=== PATIENT | female | born 1995 | race Caucasian/White ===

== ENCOUNTER 2017-01-09 18:35 | Emergency (ER) | payer BC, OTHER ==
[~2017-01-09] VITALS: Ht 171.4 cm; Wt 85.8 kg
[2017-01-09] MEDS ORDERED: DEPO150I IM (18:56)
[2017-01-09] MEDS ORDERED: MUPI2OI EXT (20:36)
[2017-01-09 20:48] VITALS: BP 123/56
== END 2017-01-09 20:48 | disposition home or self-care (01) ==
LOC: M ED 18:35
DX: L03.115 Cellulitis of right lower limb (principal); Z87.2 Personal history of diseases of the skin and subcutaneous tissue; Z79.3 Long term (current) use of hormonal contraceptives; Z88.1 Allergy status to other antibiotic agents; Z88.8 Allergy status to other drugs, medicaments and biological substances

== ENCOUNTER 2017-04-23 16:23 | Emergency (ER) | payer OTHER ==
[~2017-04-23] VITALS: Ht 172.7 cm; Wt 81.8 kg
[2017-04-23 16:23] VITALS: BP 148/76
[~2017-04-23 16:23] MED LIST: DEPO150I IM; MUPI2OI EXT
[2017-04-23] MEDS ORDERED: IBUP-1022 PO (17:28)
--- NOTE | 2017-04-24 21:13 | REP ---
RIGHT ANKLE, FOUR VIEWS: There is no evidence of an acute fracture, dislocation or intrinsic bone disease. The ankle mortise is anatomic. IMPRESSION: No fracture or dislocation. Signed by Esau Carolina MD 04/25/2017 08:32 P
== END 2017-04-23 18:10 | disposition home or self-care (01) ==
LOC: M ED 16:23
DX: S93.491A Sprain of other ligament of right ankle, initial encounter (principal); X50.1XXA Overexertion from prolonged static or awkward postures, initial encounter; Y92.099 Unspecified place in other non-institutional residence as the place of occurrence of the external cause; Y93.9 Activity, unspecified; Y99.9 Unspecified external cause status; Z79.3 Long term (current) use of hormonal contraceptives; Z88.1 Allergy status to other antibiotic agents; Z91.02 Food additives allergy status

== ENCOUNTER 2018-01-17 08:30 | Emergency (ER) | payer OTHER ==
[2018-01-17] MEDS: NS 1,000 ML IV ×2 (09:05)
[2018-01-17] MEDS: ONDANSETRON 4MG/2ML VIAL (J2405) IV ×2 (09:05)
[2018-01-17 09:07] LABS: BASO % 0.5 % (0.0-1.0); EOS # 0.1 10^3/uL (0.0-0.50); EOS % 0.8 % (0.0-3.0); HEMATOCRIT 36.3 % (36.0-47.0); HEMOGLOBIN 12.3 g/dl (12.0-15.5); IMMATURE GRANULOCYTE % 0.2 % (0-3.0); LYMPH # 1.8 10^3/uL (1.5-6.5); LYMPH % 20.8 % (24.0-44.0); MEAN CORPUSCULAR HEMOGLOBIN 29.6 pg (27.0-33.0); MEAN CORPUSCULAR HGB CONC 33.9 g/dl (32.0-36.5); MEAN CORPUSCULAR VOLUME 87.5 fl (80.0-96.0); MONO # 0.6 10^3/uL (0.0-0.8); MONO % 6.5 % (0.0-5.0); NEUTROPHILS % 71.2 % (36.0-66.0); PLATELET COUNT, AUTOMATED 289 10^3/uL (150-450); RED BLOOD COUNT 4.15 10^6/uL (4.00-5.40); RED CELL DISTRIBUTION WIDTH 12.8 % (11.5-14.5); WHITE BLOOD COUNT 8.4 10^3/uL (4.0-10.0)
[2018-01-17 09:19] LABS: CONTROL LINE HCG INT CTR LINE PRESENT; HCG, SERUM QUALITATIVE NEGATIVE (NEGATIVE)
[2018-01-17 09:33] LABS: ALBUMIN 4.2 GM/DL (3.2-5.2); ALKALINE PHOSPHATASE 105 U/L (45-117); ALT/SGPT 27 U/L (12-78); ANION GAP 13 MEQ/L (8-16); AST/SGOT 15 U/L (7-37); BILIRUBIN,DIRECT 0.2 MG/DL (0.0-0.2); BILIRUBIN,TOTAL 0.6 MG/DL (0.2-1.0); BLOOD UREA NITROGEN 14 MG/DL (7-18); CALCIUM LEVEL 9.3 MG/DL (8.5-10.1); CARBON DIOXIDE LEVEL 19 MEQ/L (21-32); CHLORIDE LEVEL 109 MEQ/L (98-107); CREATININE FOR GFR 0.92 MG/DL (0.55-1.30); GLUCOSE, FASTING 105 MG/DL (70-100); LIPASE 102 U/L (73-393); POTASSIUM SERUM 3.4 MEQ/L (3.5-5.1); SODIUM LEVEL 141 MEQ/L (136-145); TOTAL PROTEIN 7.7 GM/DL (6.4-8.2)
[2018-01-17 11:29] LABS: CHLAMYDIA DNA AMPLIFICATION NEGATIVE (NEGATIVE); GC DNA AMPLIFICATION NEGATIVE (NEGATIVE)
== END 2018-01-17 11:28 | disposition home or self-care (01) ==
LOC: M ED 08:30
DX: E86.0 Dehydration (principal); R11.10 Vomiting, unspecified; R10.9 Unspecified abdominal pain; R00.0 Tachycardia, unspecified; Z91.011 Allergy to milk products; N92.6 Irregular menstruation, unspecified; Z88.1 Allergy status to other antibiotic agents; Z88.8 Allergy status to other drugs, medicaments and biological substances; Z79.899 Other long term (current) drug therapy
CPT/HCPCS: J2405

== ENCOUNTER 2018-01-21 07:08 | Emergency (ER) | payer OTHER ==
[2018-01-21] MEDS ORDERED: GASTROGRAFIN SOLUTION 30ML (Q9963) As Ordered ×2 (08:22)
[2018-01-21 08:27] LABS: BASO # 0.1 10^3/uL (0.0-0.2); BASO % 0.7 % (0.0-1.0); EOS # 0.1 10^3/uL (0.0-0.50); EOS % 1.7 % (0.0-3.0); HEMATOCRIT 35.5 % (36.0-47.0); HEMOGLOBIN 12.1 g/dl (12.0-15.5); IMMATURE GRANULOCYTE % 0.3 % (0-3.0); LYMPH # 2.4 10^3/uL (1.5-6.5); LYMPH % 32.9 % (24.0-44.0); MEAN CORPUSCULAR HEMOGLOBIN 29.8 pg (27.0-33.0); MEAN CORPUSCULAR HGB CONC 34.1 g/dl (32.0-36.5); MEAN CORPUSCULAR VOLUME 87.4 fl (80.0-96.0); MONO # 0.7 10^3/uL (0.0-0.8); MONO % 9.2 % (0.0-5.0); NEUTROPHILS % 55.2 % (36.0-66.0); PLATELET COUNT, AUTOMATED 275 10^3/uL (150-450); RED BLOOD COUNT 4.06 10^6/uL (4.00-5.40); RED CELL DISTRIBUTION WIDTH 12.6 % (11.5-14.5); WHITE BLOOD COUNT 7.2 10^3/uL (4.0-10.0)
[2018-01-21 08:31] LABS: CONTROL LINE UCG INT CTR LINE PRESENT; URINE PREG TEST NEGATIVE (NEGATIVE)
[2018-01-21 08:32] LABS: KETONE, URINE AUTO RFX TRACE mg/dL (NEGATIVE); LEUKOCYTE ESTERASE UR AUTO RFX NEGATIVE (NEGATIVE); MUCUS, URINE RFX SMALL (NEGATIVE); NITRITE, URINE AUTO RFX NEGATIVE (NEGATIVE); RBC, URINE AUTO RFX 56 /HPF (0-3); SPECIFIC GRAVITY UR AUTO RFX 1.023 (1.002-1.035); SQUAM EPITHELIAL CELL UR AURFX 7 /HPF (0-6); WBC, URINE AUTO RFX 5 /HPF (0-3)
[2018-01-21] MEDS: NS 1,000 ML IV ×2 (08:33)
[2018-01-21] MEDS: METOCLOPRAMIDE INJ 10MG/2ML VIAL (J2765) IV ×2 (08:33)
[2018-01-21 08:41] LABS: ALBUMIN 3.9 GM/DL (3.2-5.2); ALBUMIN/GLOBULIN RATIO 1.03 (1.00-1.93); ALKALINE PHOSPHATASE 94 U/L (45-117); ALT/SGPT 26 U/L (12-78); AMYLASE 31 U/L (25-115); ANION GAP 11 MEQ/L (8-16); AST/SGOT 15 U/L (7-37); BILIRUBIN,TOTAL 0.5 MG/DL (0.2-1.0); BLOOD UREA NITROGEN 15 MG/DL (7-18); C REACTIVE PROTEIN QUANTITATIV 0.52 MG/DL (0.00-0.30); CALCIUM LEVEL 8.8 MG/DL (8.5-10.1); CARBON DIOXIDE LEVEL 21 MEQ/L (21-32); CHLORIDE LEVEL 108 MEQ/L (98-107); CREATININE FOR GFR 0.86 MG/DL (0.55-1.30); GLUCOSE, FASTING 84 MG/DL (70-100); LIPASE 85 U/L (73-393); POTASSIUM SERUM 3.6 MEQ/L (3.5-5.1); SODIUM LEVEL 140 MEQ/L (136-145); TOTAL PROTEIN 7.7 GM/DL (6.4-8.2)
[2018-01-21] MEDS: GASTROGRAFIN SOLUTION 30ML (Q9963) PO ×4 (08:42→09:09)
[2018-01-21] MEDS: KETOROLAC 30 MG/ML VIAL (J1885) IV ×2 (08:42)
[2018-01-21] MEDS ORDERED: ISOVUE-370 76% 100ML VIAL (Q9967) As Ordered ×2 (09:12)
== END 2018-01-21 10:59 | disposition home or self-care (01) ==
LOC: M ED 07:08
DX: K52.9 Noninfective gastroenteritis and colitis, unspecified (principal)
CPT/HCPCS: Q9967

== ENCOUNTER 2018-03-09 21:26 | Emergency (ER) | payer OTHER ==
[2018-03-09] MEDS: PANTOPRAZOLE 40MG INJ (PROTONIX) (C9113) IV (22:30)
[2018-03-09] MEDS: NS 1,000 ML IV (22:30)
[2018-03-09 22:56] LABS: BASO # 0.1 10^3/uL (0.0-0.2); BASO % 0.6 % (0.0-1.0); EOS # 0.1 10^3/uL (0.0-0.50); HEMATOCRIT 34.9 % (36.0-47.0); HEMOGLOBIN 11.3 g/dl (12.0-15.5); IMMATURE GRANULOCYTE % 0.4 % (0-3.0); LYMPH # 2.5 10^3/uL (1.5-6.5); LYMPH % 23.6 % (24.0-44.0); MEAN CORPUSCULAR HEMOGLOBIN 29.4 pg (27.0-33.0); MEAN CORPUSCULAR HGB CONC 32.4 g/dl (32.0-36.5); MEAN CORPUSCULAR VOLUME 90.9 fl (80.0-96.0); MONO # 0.8 10^3/uL (0.0-0.8); MONO % 7.1 % (0.0-5.0); NEUTROPHILS # 7.3 10^3/uL (1.8-7.7); NEUTROPHILS % 67.3 % (36.0-66.0); PLATELET COUNT, AUTOMATED 234 10^3/uL (150-450); RED BLOOD COUNT 3.84 10^6/uL (4.00-5.40); RED CELL DISTRIBUTION WIDTH 12.7 % (11.5-14.5); WHITE BLOOD COUNT 10.8 10^3/uL (4.0-10.0)
[2018-03-09 23:08] LABS: KETONE, URINE AUTO RFX NEGATIVE (NEGATIVE); LEUKOCYTE ESTERASE UR AUTO RFX 1+ (NEGATIVE); MUCUS, URINE RFX SMALL (NEGATIVE); NITRITE, URINE AUTO RFX NEGATIVE (NEGATIVE); RBC, URINE AUTO RFX 4 /HPF (0-3); SPECIFIC GRAVITY UR AUTO RFX 1.025 (1.002-1.035); SQUAM EPITHELIAL CELL UR AURFX 16 /HPF (0-6); WBC, URINE AUTO RFX 6 /HPF (0-3)
[2018-03-09 23:11] LABS: INR 1.06; PROTHROMBIN TIME 13.9 SECONDS (12.1-14.4)
[2018-03-09 23:33] LABS: ALBUMIN/GLOBULIN RATIO 1.33 (1.00-1.93); ALKALINE PHOSPHATASE 100 U/L (45-117); ALT/SGPT 24 U/L (12-78); AMYLASE 38 U/L (25-115); ANION GAP 10 MEQ/L (8-16); AST/SGOT 15 U/L (7-37); BILIRUBIN,DIRECT 0.1 MG/DL (0.0-0.2); BILIRUBIN,TOTAL 0.4 MG/DL (0.2-1.0); BLOOD UREA NITROGEN 19 MG/DL (7-18); CALCIUM LEVEL 8.9 MG/DL (8.5-10.1); CARBON DIOXIDE LEVEL 24 MEQ/L (21-32); CHLORIDE LEVEL 106 MEQ/L (98-107); CREATININE FOR GFR 0.79 MG/DL (0.55-1.30); GLOMERULAR FILTRATION RATE > 60.0 (>60); GLUCOSE, FASTING 84 MG/DL (70-100); LIPASE 68 U/L (73-393); POTASSIUM SERUM 3.6 MEQ/L (3.5-5.1); SODIUM LEVEL 140 MEQ/L (136-145)
[2018-03-09 23:43] LABS: CONTROL LINE HCG INT CTR LINE PRESENT; HCG, SERUM QUALITATIVE NEGATIVE (NEGATIVE)
== END 2018-03-10 00:44 | disposition home or self-care (01) ==
LOC: M ED 03-10 00:44
DX: R10.84 Generalized abdominal pain (principal); R11.0 Nausea; K21.9 Gastro-esophageal reflux disease without esophagitis; Z88.1 Allergy status to other antibiotic agents; Z88.8 Allergy status to other drugs, medicaments and biological substances
CPT/HCPCS: C9113

== ENCOUNTER → 2018-05-01 | Outpatient (REF) | payer OTHER ==
[~2018-05-01] MED LIST changes: +CIPR-249 PO; +DICY10CA13 PO; +FLAG500T PO; +FLUO20CA19; +IBUP-1022 PO; +PROT1TAB2 PO; +REGL10TA6 PO; +ZOFR4TAB14 PO; +ZOFR4TAB16 PO
== END ==
LOC: M SFHCPLAZ 14:53
DX: R19.4 Change in bowel habit (principal)

== ENCOUNTER → 2018-05-03 | Outpatient (CLI) | payer OTHER ==
[2018-05-05 07:47] LABS: H PYLORI QUALITATIVE IgG NEGATIVE (NEGATIVE)
== END ==
LOC: M LAB 14:49
PROVIDERS: ATTEND Internal Medicine
DX: R19.4 Change in bowel habit (principal)

== ENCOUNTER 2018-05-10 08:39 | Emergency (ER) | payer OTHER ==
[~2018-05-10] VITALS: Ht 170.2 cm; Wt 78.2 kg
[~2018-05-10 08:39] MED LIST changes: -DICY10CA13 PO; -FLUO20CA19
[2018-05-10] MEDS ORDERED: FLUO20CA19 (08:46)
[2018-05-10 09:10] LABS: BASO % 0.4 % (0.0-1.0); EOS # 0.1 10^3/uL (0.0-0.50); EOS % 0.7 % (0.0-3.0); HEMATOCRIT 35.6 % (36.0-47.0); HEMOGLOBIN 11.9 g/dl (12.0-15.5); LYMPH # 1.4 10^3/uL (1.5-6.5); LYMPH % 15.5 % (24.0-44.0); MEAN CORPUSCULAR HEMOGLOBIN 30.1 pg (27.0-33.0); MEAN CORPUSCULAR HGB CONC 33.4 g/dl (32.0-36.5); MEAN CORPUSCULAR VOLUME 90.1 fl (80.0-96.0); MONO # 0.5 10^3/uL (0.0-0.8); MONO % 5.2 % (0.0-5.0); NEUTROPHILS % 77.9 % (36.0-66.0); PLATELET COUNT, AUTOMATED 251 10^3/uL (150-450); RED BLOOD COUNT 3.95 10^6/uL (4.00-5.40)
[2018-05-10] MEDS ORDERED: ONDANSETRON 4MG/2ML VIAL (J2405) IV ONE (09:30)
[2018-05-10] MEDS ORDERED: KETOROLAC 30 MG/ML VIAL (J1885) IV ONE (09:30)
[2018-05-10] MEDS ORDERED: NS 1,000 ML IV ONE (09:30)
[2018-05-10 09:34] LABS: HCG, SERUM QUALITATIVE NEGATIVE (NEGATIVE)
[2018-05-10 09:39] LABS: ALBUMIN 4.3 GM/DL (3.2-5.2); ALT/SGPT 18 U/L (12-78); AMYLASE 35 U/L (25-115); BILIRUBIN,DIRECT 0.1 MG/DL (0.0-0.2); BILIRUBIN,TOTAL 0.5 MG/DL (0.2-1.0); BLOOD UREA NITROGEN 12 MG/DL (7-18); CALCIUM LEVEL 9.2 MG/DL (8.5-10.1); CARBON DIOXIDE LEVEL 23 MEQ/L (21-32); CHLORIDE LEVEL 106 MEQ/L (98-107); CREATININE FOR GFR 0.76 MG/DL (0.55-1.30); GLOMERULAR FILTRATION RATE > 60.0 (>60); GLUCOSE, FASTING 96 MG/DL (70-100); LIPASE 69 U/L (73-393); POTASSIUM SERUM 4.1 MEQ/L (3.5-5.1); SODIUM LEVEL 137 MEQ/L (136-145); TOTAL PROTEIN 7.5 GM/DL (6.4-8.2)
[2018-05-10] MEDS ORDERED: ISOVUE-370 76% 100ML VIAL (Q9967) As Ordered ONE (10:27)
[2018-05-10 11:05] VITALS: BP 117/64
--- NOTE | 2018-05-10 11:15 | REP ---
GALLBLADDER ULTRASOUND: HISTORY: Epigastric pain. There is no filling defects in the gallbladder. The gallbladder wall measures 1.3 mm. The common bile duct measures 3.5 mm. The liver and pancreas are normal in echogenicity. The right kidney measures 4.2 cm in transverse x 3.3 cm in AP x 10.8 cm in cephalocaudal dimensions. There is no hydronephrosis or mass. IMPRESSION: Normal gallbladder ultrasound. Electronically Signed by Rao Bruno MD 05/10/2018 11:29 A
--- NOTE | 2018-05-10 11:22 | REP ---
CT ABDOMEN AND PELVIS WITH CONTRAST: HISTORY: Epigastric pain. CONTRAST: Isovue-370, 100 mL. The liver, gallbladder, pancreas, spleen, adrenal glands, and kidneys are normal in appearance. There is no mass, adenopathy, or free fluid. The visualized lungs are clear. The urinary bladder and uterus are normal in appearance. A 1.8 cm oval structure is present in the region of the left adnexa. This most likely represents a left ovarian cyst. The bony structure is intact. IMPRESSION: There is a 1.8 cm oval structure in the region of the left adnexa most likely representing an ovarian cyst. Electronically Signed by Rao Bruno MD 05/10/2018 11:30 A
[2018-05-11] MEDS ORDERED: ZOFR4TAB14 PO (08:50)
[2018-05-11] MEDS ORDERED: DICY10CA13 PO (08:50)
[2018-05-11] MEDS ORDERED: PROT1TAB2 PO (08:53)
== END 2018-05-10 11:13 | disposition home or self-care (01) ==
LOC: M ED 08:39
DX: R10.13 Epigastric pain (principal); N83.202 Unspecified ovarian cyst, left side; R11.2 Nausea with vomiting, unspecified; K21.9 Gastro-esophageal reflux disease without esophagitis; Z91.011 Allergy to milk products; Z88.1 Allergy status to other antibiotic agents; Z88.8 Allergy status to other drugs, medicaments and biological substances; Z79.899 Other long term (current) drug therapy
CPT/HCPCS: 74177; 76705; 80048; 80076; 81001; 82150; 83690; 84703; 85025; 87086; 96374; 96375; 99284; J1885; J2405; Q9967

== ENCOUNTER 2018-05-11 07:14 | Emergency (ER) | payer OTHER ==
[~2018-05-11] VITALS: Ht 170.2 cm; Wt 78.2 kg
[~2018-05-11 07:14] MED LIST changes: +FLUO20CA19
[2018-05-11] MEDS ORDERED: DICYCLOMINE INJ 20MG/2ML (J0500) IM ONE (08:45)
[2018-05-11] MEDS ORDERED: DICY10CA13 PO (08:50)
[2018-05-11] MEDS ORDERED: ZOFR4TAB14 PO (08:50)
[2018-05-11] MEDS ORDERED: PROT1TAB2 PO (08:53)
[2018-05-11 09:10] VITALS: BP 111/63
== END 2018-05-11 09:15 | disposition home or self-care (01) ==
LOC: M ED 07:14
DX: G89.29 Other chronic pain (principal); R10.84 Generalized abdominal pain; F33.9 Major depressive disorder, recurrent, unspecified; Z88.1 Allergy status to other antibiotic agents; Z88.8 Allergy status to other drugs, medicaments and biological substances
CPT/HCPCS: 96372; 99283; J0500

== ENCOUNTER 2018-08-26 14:13 | Emergency (ER) | payer OTHER ==
[~2018-08-26] VITALS: Ht 170.2 cm; Wt 75.0 kg
[~2018-08-26 14:13] MED LIST changes: +DICY10CA13 PO
[2018-08-26 14:15] VITALS: BP 137/71
[2018-08-26 14:59] LABS: HCG, SERUM QUALITATIVE POSITIVE (NEGATIVE)
== END 2018-08-26 15:30 | disposition home or self-care (01) ==
LOC: M ED 14:13
DX: Z32.01 Encounter for pregnancy test, result positive (principal); K21.9 Gastro-esophageal reflux disease without esophagitis; K58.9 Irritable bowel syndrome, unspecified; Z88.1 Allergy status to other antibiotic agents; Z88.8 Allergy status to other drugs, medicaments and biological substances

== ENCOUNTER → 2018-10-03 | Outpatient (CLI) | payer OTHER ==
[2018-10-03 20:53] LABS: CHLAMYDIA DNA AMPLIFICATION NEGATIVE (NEGATIVE); GC DNA AMPLIFICATION NEGATIVE (NEGATIVE)
[2018-10-06 10:24] LABS: HEPATITIS C VIRUS ABY INDEX < 0.0 INDEX (<0.8); HIV 1&2 SCREEN CENTAUR NEGATIVE (NEGATIVE); RUBELLA IgG QUALITATIVE IMMUNE (IMMUNE)
== END ==
LOC: M LAB 17:19
PROVIDERS: ATTEND Advanced Practice Midwife
DX: Z36.89 Encounter for other specified antenatal screening (principal)

== ENCOUNTER 2018-10-24 11:24 | Emergency (ER) | payer OTHER ==
[~2018-10-24] VITALS: Ht 170.2 cm; Wt 70.0 kg
[2018-10-24] MEDS ORDERED: CLIN300C5 (11:29)
[2018-10-24] MEDS ORDERED: LIDOCAINE W/EPINEPHRINE 1% 20ML VIAL SC ONE (14:15)
[2018-10-24 15:09] VITALS: BP 133/72
== END 2018-10-24 15:16 | disposition home or self-care (01) ==
LOC: M ED 11:24
DX: O99.89 Other specified diseases and conditions complicating pregnancy, childbirth and the puerperium (principal); L05.01 Pilonidal cyst with abscess; Z3A.13 13 weeks gestation of pregnancy; O99.611 Diseases of the digestive system complicating pregnancy, first trimester; K58.9 Irritable bowel syndrome, unspecified; Z88.1 Allergy status to other antibiotic agents; Z79.2 Long term (current) use of antibiotics

== ENCOUNTER → 2018-11-17 | Outpatient (CLI) | payer OTHER ==
[~2018-11-17] MED LIST changes: +APAP325T4 PO; +CLIN300C5; +FERR325T3 PO; +IBUP80TA PO; +PREN29TA4 PO; +PRENTAB9 PO; +PROT20TA11 PO
[2018-11-17 18:18] LABS: HEMATOCRIT 29.1 % (36.0-47.0); HEMOGLOBIN 9.8 g/dl (12.0-15.5); MEAN CORPUSCULAR HEMOGLOBIN 31.1 pg (27.0-33.0); MEAN CORPUSCULAR HGB CONC 33.7 g/dl (32.0-36.5); MEAN CORPUSCULAR VOLUME 92.4 fl (80.0-96.0); PLATELET COUNT, AUTOMATED 247 10^3/uL (150-450); RED BLOOD COUNT 3.15 10^6/uL (4.00-5.40); WHITE BLOOD COUNT 11.1 10^3/uL (4.0-10.0)
== END ==
LOC: M LAB 17:01
PROVIDERS: ATTEND Advanced Practice Midwife
DX: Z34.01 Encounter for supervision of normal first pregnancy, first trimester (principal)

== ENCOUNTER → 2018-12-03 | Outpatient (CLI) | payer OTHER ==
[~2018-12-03] MED LIST changes: -APAP325T4 PO; -FERR325T3 PO; -IBUP80TA PO; -PREN29TA4 PO; -PRENTAB9 PO; -PROT20TA11 PO
--- NOTE | 2018-12-04 08:09 | REP ---
Clinical: Anatomical evaluation. Comparison: None . Findings: Examination demonstrates a single live intrauterine in breech presentation. motion is identified by technologist. Placenta is noted anterior and grade one without evidence for placenta previa or abruption. Amniotic fluid volume is normal. Cervix measures 3.0 cm in length and appears closed. No evidence for nuchal cord. Gestational age by LMP 19 weeks 0 days with VALENTINE 04/29/2019 . Gestational age by current measurements 19 weeks 0 days with VALENTINE 04/29/2019 . FHR equals 152 beats per minute. BPD 4.1 cm 18 weeks 3 days HC 16.2 cm 20 weeks 0 days AC 14.4 cm 19 weeks 5 days FL 2.9 cm 19 weeks 0 days HL 2.8 cm 19 weeks 1 day HC/AC ratio 1.13 Estimated weight 286 grams ( 59th percentile). Anatomical assessment demonstrates normal structures including cranium, choroid plexus, cavum, cerebellum/posterior fossa, facial features, lungs, four-chamber heart/ventricular outflow tracts, diaphragm, stomach, cord insertion/three-vessel cord, kidneys/bladder, spine, and extremities. Impression: Single live intrauterine in footling breech presentation demonstrating appropriate interval growth. Anatomical assessment is complete and normal. Electronically Signed by Frankie Valdivia MD 12/04/2018 08:00 A
== END ==
LOC: M RAD 16:53
PROVIDERS: ATTEND Advanced Practice Midwife
DX: O32.8XX0 Maternal care for other malpresentation of fetus, not applicable or unspecified (principal); Z36.89 Encounter for other specified antenatal screening; Z3A.19 19 weeks gestation of pregnancy

== ENCOUNTER 2019-01-03 11:41 | Emergency (ER) | payer OTHER ==
[~2019-01-03] VITALS: Ht 170.2 cm; Wt 76.0 kg
[2019-01-03] MEDS ORDERED: PREN29TA4 PO (11:46)
[2019-01-03 15:16] VITALS: BP 127/59
== END 2019-01-03 15:21 | disposition home or self-care (01) ==
LOC: M ED 11:41
DX: O99.512 Diseases of the respiratory system complicating pregnancy, second trimester (principal); J06.9 Acute upper respiratory infection, unspecified; Z88.1 Allergy status to other antibiotic agents

== ENCOUNTER 2019-01-22 23:50 | Outpatient (CLI) | payer OTHER ==
[~2019-01-22] VITALS: Ht 170.2 cm; Wt 76.2 kg
[~2019-01-22 23:50] MED LIST changes: +PREN29TA4 PO
== END 2019-01-23 01:57 | disposition home or self-care (01) ==
LOC: M LDO 23:50
PROVIDERS: ATTEND Obstetrics & Gynecology
DX: O26.892 Other specified pregnancy related conditions, second trimester (principal); M54.5 Low back pain; Z3A.26 26 weeks gestation of pregnancy

== ENCOUNTER 2019-01-25 11:41 | Outpatient (CLI) | payer OTHER ==
[~2019-01-25] VITALS: Ht 170.2 cm; Wt 77.1 kg
[2019-01-25 12:02] VITALS: BP 124/56
== END 2019-01-25 13:19 | disposition home or self-care (01) ==
LOC: M LDO 11:41
PROVIDERS: ATTEND Specialist
DX: O36.8190 Decreased fetal movements, unspecified trimester, not applicable or unspecified (principal); Z3A.26 26 weeks gestation of pregnancy

== ENCOUNTER → 2019-01-28 | Outpatient (CLI) | payer OTHER ==
[~2019-01-28] MED LIST changes: +APAP325T4 PO; +FERR325T3 PO; +IBUP80TA PO; +PRENTAB9 PO; +PROT20TA11 PO
[2019-01-28 15:01] LABS: HEMATOCRIT 29.4 % (36.0-47.0); HEMOGLOBIN 9.6 g/dl (12.0-15.5); MEAN CORPUSCULAR HEMOGLOBIN 31.6 pg (27.0-33.0); MEAN CORPUSCULAR HGB CONC 32.7 g/dl (32.0-36.5); MEAN CORPUSCULAR VOLUME 96.7 fl (80.0-96.0); PLATELET COUNT, AUTOMATED 255 10^3/uL (150-450); RED BLOOD COUNT 3.04 10^6/uL (4.00-5.40); WHITE BLOOD COUNT 9.4 10^3/uL (4.0-10.0)
== END ==
LOC: M LAB 12:22
PROVIDERS: ATTEND Obstetrics & Gynecology
DX: Z34.82 Encounter for supervision of other normal pregnancy, second trimester (principal); Z36.89 Encounter for other specified antenatal screening

== ENCOUNTER 2019-03-03 15:31 | Outpatient (CLI) | payer OTHER ==
[~2019-03-03] VITALS: Ht 170.2 cm; Wt 82.6 kg
[~2019-03-03 15:31] MED LIST changes: -APAP325T4 PO; -FERR325T3 PO; -IBUP80TA PO; -PRENTAB9 PO; -PROT20TA11 PO
[2019-03-03 15:42] VITALS: BP 128/58
[2019-03-03] MEDS ORDERED: PRENTAB9 PO (15:57)
[2019-03-03] MEDS ORDERED: APAP325T4 PO (15:57)
[2019-03-03 17:37] VITALS: BP 118/66
== END 2019-03-03 17:53 | disposition home or self-care (01) ==
LOC: M LDO 15:31
PROVIDERS: ATTEND Obstetrics & Gynecology
DX: O99.89 Other specified diseases and conditions complicating pregnancy, childbirth and the puerperium (principal); R10.2 Pelvic and perineal pain; Z3A.31 31 weeks gestation of pregnancy

== ENCOUNTER → 2019-03-31 | Outpatient (REF) | payer OTHER ==
[~2019-03-31] MED LIST changes: +APAP325T4 PO; +PRENTAB9 PO
== END ==
LOC: M SFHCWAGY 09:54
PROVIDERS: ATTEND Obstetrics & Gynecology
DX: Z36.85 Encounter for antenatal screening for Streptococcus B (principal)

== ENCOUNTER 2019-04-17 02:30 | Inpatient (IN) | payer OTHER ==
[~2019-04-17] VITALS: Ht 170.2 cm; Wt 85.5 kg
[2019-04-17] VITALS (34 sets, daily range): BP systolic 85–131; BP diastolic 49–80
[2019-04-17] MEDS ORDERED: LR 1,000 ML IV SCH ×2 (02:50→08:19)
[2019-04-17] MEDS ORDERED: LACTATED RINGER'S 1000 ML IV STA (02:50)
[2019-04-17 03:19] LABS: HEMATOCRIT 33.3 % (36.0-47.0); MEAN CORPUSCULAR HEMOGLOBIN 30.2 pg (27.0-33.0); MEAN CORPUSCULAR VOLUME 91.5 fl (80.0-96.0); PLATELET COUNT, AUTOMATED 320 10^3/uL (150-450); RED BLOOD COUNT 3.64 10^6/uL (4.00-5.40); WHITE BLOOD COUNT 16.1 10^3/uL (4.0-10.0)
[2019-04-17] MEDS ORDERED: FERR325T3 PO (03:31)
[2019-04-17] MEDS ORDERED: PROT20TA11 PO (03:32)
[2019-04-17] MEDS ORDERED: FENTANYL 2MCG/ML ROPIVACAINE 0.2% IN 0.9% NACL 100ML IVBAG As Ordered ONE (06:02)
[2019-04-17] MEDS ORDERED: EPIDURAL/PCA KEYS XX PRN (06:15)
[2019-04-17] MEDS ORDERED: ePHEDrine SULFATE 25 MG/5 ML(5MG/ML) SYRINGE IV PRN (06:15)
[2019-04-17] MEDS ORDERED: FENTANYL/ROPIVACAINE/NACL BAG 100 ML EPIDURAL SCH (06:15)
[2019-04-17] MEDS ORDERED: EPIDURAL COMMENT XX SCH (06:15)
[2019-04-17] MEDS ORDERED: LACTATED RINGER'S 1000 ML IV PRN (06:15)
[2019-04-17] MEDS ORDERED: NALOXONE INJ 0.4 MG/1 ML VIAL (J2310) IV PRN (06:15)
[2019-04-17] MEDS ORDERED: diphenhydrAMINE INJ 50MG/ML VIAL (J1200) IV PRN (06:15)
[2019-04-17] MEDS ORDERED: REFRIGERATOR IV KEYS XX PRN (06:15)
[2019-04-17] MEDS ORDERED: ONDANSETRON 4MG/2ML VIAL (J2405) IV PRN (06:15)
--- NOTE | 2019-04-17 06:41 | HPE ---
DATE OF ADMISSION: 04/17/2019 24-year-old 1, para 0 female at 38-2/7 weeks gestation by last menstrual period (LMP) consistent with 8 week ultrasound, estimated date of confinement (EDC) 04/29/2019 who presents with regular contractions every 3-4 minutes that became strong over the last 2 hours. She denies vaginal bleeding. There was good movement. COURSE: The patient initiated care at 9 weeks gestation on 09/24/2018. Her blood pressure was 120/74, weight was 162. She had no complications. MEDICAL HISTORY: Noncontributory. SURGICAL HISTORY: Endoscopy. ALLERGIES: OMNICEF. SOCIAL HISTORY: The patient lives in [place]. The father of the baby is involved. She denies cigarettes, alcohol or drug use. FAMILY HISTORY: Noncontributory. PHYSICAL EXAMINATION: Blood pressure 134/74, pulse 84. General: She appears uncomfortable. Head/neck exam: Normal. Lungs: Clear. Heart: Regular rate and rhythm. Abdomen: Nontender, gravid. heart tones category 1. Sterile vaginal exam 4-5 cm, 100% effaced, -1 station, vertex. Contractions every 3-4 minutes. Extremities nontender. LABS: Blood type O positive, rubella immune, RPR nonreactive. Group B Streptococcus (GBS) negative. ASSESSMENT: 24-year-old 1 at 38-2/7 weeks gestation who presents in labor. PLAN: Patient is admitted on 04/17/2019.
--- NOTE | 2019-04-17 08:19 | IPNPDOC ---
Text Note Date of Service The patient was seen on 04/17/19. NOTE Comfortable with epidural UC difficult to trace, irregular Cat I tracing SVE 7/100/-1, AROM moderate clear fluid Pitocin augmentation ordered Anticipate NSVB VS,Fishbone, I+O VS, Fishbone, I+O Laboratory Tests 04/17/19 03:12 Vital Signs Date Time Temp Pulse Resp B/P (MAP) Pulse Ox O2 Delivery O2 Flow Rate FiO2 04/17/19 07:42 65 116/62 (80) 04/17/19 07:14 97.3 16 Shruthi Tate CNM Apr 17, 2019 08:19
[2019-04-17] MEDS ORDERED: OXYTOCIN DRIP 30 UNITS in IV 1 EA IV SCH (08:30)
--- NOTE | 2019-04-17 12:10 | DNPDOC ---
[facility] Delivery Note Delivery Note DATE OF DELIVERY: 04/17/19 PREDELIVERY DIAGNOSIS: 38-2/7 weeks' gestation and labor. POST DELIVERY DIAGNOSIS: Delivered. PROCEDURE: Spontaneous vaginal delivery. PROVIDER: Shruthi Tate CNM ANESTHESIA: Epidural. ESTIMATED BLOOD LOSS: 100 mL. FINDINGS: 5 pound 5 ounce, 2400gm male infant, Score 8/9, nuchal cord times 1 loose. Compound presentation left posterior arm. DELIVERY SUMMARY: Patient is a 24-year-old 1 now para 1-0-0-1 who was admitted to labor and delivery for active labor. She utilized an epidural for labor coping. AROM clear fluid 0815 and pitocin augmentation following epidural. Fully dilated 1128. Viable male delivered without difficulty LOP after reduction of loose nuchal cord, compound with left posterior arm at 1142. Spontaneous respirations, transitioned on maternal abdomen. Cord doubly clamped and cut by grandmother under my direction once pulsations ceased. Apgars 8/9. Placenta neff, intact with 3v cord @ 1148. Fundus firmed with massage and IV pitocin bolus. Perineum, vagina and cervix inspected. First degree vaginal laceration repaired in one layer with 3-0 vicryl rapide. EBL 100ml. Parents are naming their son Ollie. Sponge sharp and instrument count correct at close of procedure. Shruthi Tate CNM Apr 17, 2019 12:10
[2019-04-17] MEDS ORDERED: DIBUCAINE 1% OINTMENT 30GM TOP PRN (12:15)
[2019-04-17] MEDS ORDERED: ACETAMINOPHEN 500 MG TAB PO PRN (12:15)
[2019-04-17] MEDS ORDERED: IBUPROFEN 800 MG TAB PO PRN (12:15)
[2019-04-17] MEDS ORDERED: DOCUSATE SODIUM 100 MG CAP PO PRN (12:15)
[2019-04-17] MEDS ORDERED: MOM 30ML SUSPENSION UDC PO PRN (12:15)
[2019-04-17] MEDS ORDERED: IBUPROFEN 600 MG TAB PO PRN (12:15)
[2019-04-17] MEDS ORDERED: RHOGAM 300 MCG (1500 IU) INJ (J2790) IM SCH (12:15)
[2019-04-17] MEDS ORDERED: MEASLES,MUMPS,RUBELLA VACCINE INJ (MMR-II) (90707) SC SCH (12:15)
[2019-04-17] MEDS ORDERED: METHYLERGONOVINE MALEATE 0.2 MG TAB PO PRN (12:15)
[2019-04-17] MEDS ORDERED: ACETAMINOPHEN TAB 650MG DOSE (2X325MG) PO PRN (12:15)
[2019-04-18 05:59] VITALS: BP 118/66
[2019-04-18] MEDS: PRENATAL VITAMINS CHEWABLE TABLET PO SCH (08:43)
[2019-04-18 18:05] VITALS: BP 131/64
[2019-04-19 06:00] VITALS: BP 98/53
[2019-04-19] MEDS: PRENATAL VITAMINS CHEWABLE TABLET PO SCH (07:57)
[2019-04-19] MEDS ORDERED: IBUP80TA PO (10:47)
== END 2019-04-19 11:40 | disposition home or self-care (01) | DRG 560 ==
LOC: M LDO 02:30 → M LDI 02:48 → M OBS 13:20
PROVIDERS: ADMIT Specialist; ATTEND Specialist
PROC: 10E0XZZ Delivery of Products of Conception, External Approach (ICD-10-PCS; principal; 2019-04-17)
PROC: 0HQ9XZZ Repair Perineum Skin, External Approach (ICD-10-PCS; 2019-04-17)
PROC: 10907ZC Drainage of Amniotic Fluid, Therapeutic from Products of Conception, Via Natural or Artificial Opening (ICD-10-PCS; 2019-04-17)
DX: O32.6XX0 Maternal care for compound presentation, not applicable or unspecified (principal); O69.81X0 Labor and delivery complicated by cord around neck, without compression, not applicable or unspecified; Z37.0 Single live birth; Z3A.38 38 weeks gestation of pregnancy; O70.0 First degree perineal laceration during delivery

== ENCOUNTER 2019-06-10 10:13 | Day surgery (SDC) | payer OTHER ==
[~2019-06-10] VITALS: Ht 170.2 cm; Wt 90.7 kg
[~2019-06-10 10:13] MED LIST changes: +DICY20TA11 PO; +FERR325T3 PO; +FERR32TA PO; +FLUO20CA19 PO; +IBUP80TA PO; +LR 1,000 ML IV ONE; +PROT20TA11 PO
[2019-06-10] MEDS ORDERED: propofoL 200 MG/20 ML VIAL As Ordered ONE (11:13)
[2019-06-10] MEDS ORDERED: MIDAZOLAM INJ 2 MG/2 ML VIAL (J2250) As Ordered ONE (11:13)
[2019-06-10] MEDS ORDERED: LIDOCAINE 2% INJ 100 MG/5 ML SDV (FOR ANES.) As Ordered ONE (11:13)
[2019-06-10] MEDS ORDERED: fentaNYL 100 MCG/2 ML INJECTION (J3010) As Ordered ONE (11:13)
[2019-06-10] MEDS ORDERED: ONDANSETRON 4MG/2ML VIAL (J2405) As Ordered ONE (11:14)
[2019-06-10] MEDS ORDERED: dexameTHASONE 4 MG/ML 1ML VIAL (J1100) As Ordered ONE (11:14)
[2019-06-10] MEDS ORDERED: CHLOROPROCAINE PRES. FREE 3% INJ 20 ML VIAL (J2400) As Ordered ONE (11:38)
[2019-06-10] MEDS ORDERED: fentaNYL 100 MCG/2 ML INJECTION (J3010) IV PRN (13:00)
[2019-06-10] MEDS ORDERED: LR 1,000 ML IV SCH (13:00)
[2019-06-10] MEDS ORDERED: ONDANSETRON 4MG/2ML VIAL (J2405) IV PRN (13:00)
[2019-06-10] MEDS ORDERED: NORCO, ANEXSIA 5/325MG TABLET (HYDROcodone/ACETAMINOPHEN) PO PRN (13:00)
[2019-06-10] MEDS ORDERED: PERCOCET 5MG/325MG TAB PO PRN (13:00)
[2019-06-10] MEDS ORDERED: HYDROMORPHONE HCL 0.5 MG/ 0.5 ML SYRINGE (J1170 PER 1) IV PRN (13:00)
--- NOTE | 2019-06-10 14:02 | RO ---
DATE OF PROCEDURE: 06/10/2019 PREOPERATIVE DIAGNOSIS: Pilonidal cyst. POSTOPERATIVE DIAGNOSIS: Pilonidal cyst. PROCEDURE: Pilonidal cystectomy. SURGEON: Dr. Collazo. BUSINESS PROCESS ASSOCIATE: None. ANESTHESIA: Spinal with local. ESTIMATED BLOOD LOSS: 5 mL. COMPLICATIONS: None. INDICATION FOR PROCEDURE: The patient is a 24-year-old female who presents with a history of recurrent pilonidal cyst. Recommendation was to proceed with cystectomy. Risks and benefits of procedure not limited but including bleeding, infection, damage to surrounding structures, cyst recurrence and need for further surgery were discussed in detail with the patient, informed consent was obtained, procedure was planned. DESCRIPTION OF PROCEDURE: The patient was brought back to operating room 7. After sufficient sedation and spinal sedation, the patient was placed in the prone position. The presacral area was then sterilely prepped and draped with Betadine. Next, a time-out was done to confirm proper patient and proper procedure. Following that, an elliptical incision around the cyst in the sinus tract was done with 15 blade scalpel. The incision was then carried down to the level of the presacral fascia using cautery. Once the specimen was removed all as one piece, the cautery was used to control hemostasis around the wound edges. Once that was completed, the edges and the wound base were irrigated with normal saline. No signs of any bleeding was noted. The wound was then dried, packed with gauze covered with tape, thus ending procedure.
[2019-06-10 15:05] VITALS: BP 126/72
== END 2019-06-10 15:30 | disposition home or self-care (01) ==
LOC: M SDC 10:13
PROVIDERS: ATTEND Surgery
DX: L05.91 Pilonidal cyst without abscess (principal); K58.8 Other irritable bowel syndrome; K21.9 Gastro-esophageal reflux disease without esophagitis; D64.9 Anemia, unspecified; F41.9 Anxiety disorder, unspecified; Z79.899 Other long term (current) drug therapy; Z88.1 Allergy status to other antibiotic agents
CPT/HCPCS: 11770; 81025; 88304; J1100; J2250; J2400; J2405; J3010

== ENCOUNTER → 2019-06-16 | Outpatient (REF) | payer OTHER ==
[~2019-06-16] MED LIST changes: -FLUO20CA19; -FLUO20CA19 PO; +FLUO20CA22; +FLUO20CA22 PO; -LR 1,000 ML IV ONE
== END ==
LOC: M LAB REF 14:16
PROVIDERS: ATTEND Physician Assistant Medical
DX: R50.9 Fever, unspecified (principal)

== ENCOUNTER 2021-07-24 14:24 | Emergency (ER) | payer OTHER ==
[~2021-07-24] VITALS: Ht 170.2 cm; Wt 84.4 kg
[~2021-07-24 14:24] MED LIST changes: +CLIN-250; -CLIN300C5; -DICY20TA11 PO; +DICY20TA20 PO
[2021-07-24] MEDS ORDERED: ONDANSETRON 4MG/2ML VIAL IV ONE (16:20)
[2021-07-24] MEDS ORDERED: NS 1,000 ML IV ONE (17:00)
[2021-07-24 17:05] LABS: BASO % 0.2 % (0.0-1.0); EOS % 0.2 % (0.0-3.0); HEMATOCRIT 34.1 % (36.0-47.0); HEMOGLOBIN 11.6 g/dl (12.0-15.5); LYMPH # 2.3 10^3/uL (1.5-5.0); LYMPH % 18.3 % (24.0-44.0); MEAN CORPUSCULAR HEMOGLOBIN 30.1 pg (27.0-33.0); MEAN CORPUSCULAR VOLUME 88.6 fl (80.0-96.0); MONO # 0.7 10^3/uL (0.0-0.8); MONO % 5.4 % (2.0-8.0); NEUTROPHILS # 9.5 10^3/uL (1.5-8.5); NEUTROPHILS % 75.5 % (36.0-66.0); PLATELET COUNT, AUTOMATED 280 10^3/uL (150-450); RED BLOOD COUNT 3.85 10^6/uL (4.00-5.40); WHITE BLOOD COUNT 12.5 10^3/uL (4.0-10.0)
[2021-07-24 17:33] LABS: INR 0.97; PROTHROMBIN TIME 13.3 SECONDS (12.7-14.5)
[2021-07-24 17:44] LABS: ALBUMIN 3.9 GM/DL (3.2-5.2); ALT/SGPT 26 U/L (12-78); BILIRUBIN,DIRECT < 0.1 MG/DL (0.0-0.2); BILIRUBIN,TOTAL 0.5 MG/DL (0.2-1.0); BLOOD UREA NITROGEN 12 MG/DL (7-18); CALCIUM LEVEL 9.5 MG/DL (8.5-10.1); CARBON DIOXIDE LEVEL 22 MEQ/L (21-32); CHLORIDE LEVEL 107 MEQ/L (98-107); GLOMERULAR FILTRATION RATE > 60.0 (>60); GLUCOSE, FASTING 76 MG/DL (70-100); LIPASE 101 U/L (73-393); SODIUM LEVEL 135 MEQ/L (136-145); TOTAL PROTEIN 7.6 GM/DL (6.4-8.2)
[2021-07-24] MEDS ORDERED: SUCRALFATE SUSP 1GM/10ML UD PO ONE (18:10)
[2021-07-24] MEDS ORDERED: ONDA4TAB6 PO (19:26)
[2021-07-24] MEDS ORDERED: ONDANSETRON 4 MG ORAL DISINTEGRATING TAB PO ONE (19:30)
[2021-07-24 19:31] VITALS: BP 128/63
== END 2021-07-24 19:43 | disposition home or self-care (01) ==
LOC: M ED 14:24
DX: O21.9 Vomiting of pregnancy, unspecified (principal); O99.619 Diseases of the digestive system complicating pregnancy, unspecified trimester; Z88.1 Allergy status to other antibiotic agents
CPT/HCPCS: 80048; 80076; 83690; 84702; 85025; 85610; 86850; 86900; 86901; 96361; 96374; 99284; J2405; Q0162

== ENCOUNTER → 2021-07-25 | Outpatient (CLI) | payer OTHER ==
[~2021-07-25] MED LIST changes: +ONDA4TAB6 PO
[2021-07-25 13:26] LABS: BASO % 0.2 % (0.0-1.0); EOS % 0.4 % (0.0-3.0); HEMOGLOBIN 11.5 g/dl (12.0-15.5); LYMPH # 1.9 10^3/uL (1.5-5.0); LYMPH % 19.7 % (24.0-44.0); MEAN CORPUSCULAR HGB CONC 32.9 g/dl (32.0-36.5); MEAN CORPUSCULAR VOLUME 91.4 fl (80.0-96.0); MONO # 0.5 10^3/uL (0.0-0.8); MONO % 5.2 % (2.0-8.0); NEUTROPHILS # 7.2 10^3/uL (1.5-8.5); NEUTROPHILS % 74.1 % (36.0-66.0); PLATELET COUNT, AUTOMATED 272 10^3/uL (150-450); RED BLOOD COUNT 3.83 10^6/uL (4.00-5.40); WHITE BLOOD COUNT 9.7 10^3/uL (4.0-10.0)
[2021-07-25 14:49] LABS: HEPATITIS C VIRUS ABY INDEX 0.2 INDEX (<0.8); HIV 1&2 SCREEN CENTAUR NEGATIVE (NEGATIVE)
[2021-07-25 15:09] LABS: GC DNA AMPLIFICATION NEGATIVE (NEGATIVE)
== END ==
LOC: M PLALAB 10:40
PROVIDERS: ATTEND Advanced Practice Midwife
DX: Z34.91 Encounter for supervision of normal pregnancy, unspecified, first trimester (principal); Z36.89 Encounter for other specified antenatal screening

== ENCOUNTER → 2021-08-02 | Outpatient (CLI) | payer OTHER | LOC: M PLALAB 11:00 | PROVIDERS: ATTEND Advanced Practice Midwife | DX: Z34.80 Encounter for supervision of other normal pregnancy, unspecified trimester (principal); Z36.89 Encounter for other specified antenatal screening ==

== ENCOUNTER → 2021-10-18 | Outpatient (CLI) | payer OTHER | LOC: M WHC 08:00 | PROVIDERS: ATTEND Advanced Practice Midwife | DX: O99.212 Obesity complicating pregnancy, second trimester (principal); E66.9 Obesity, unspecified ==

== ENCOUNTER → 2021-10-26 | Outpatient (REF) | payer OTHER ==
[2021-10-26 20:04] LABS: GC DNA AMPLIFICATION NEGATIVE (NEGATIVE)
== END ==
LOC: M PLALAB 15:54
PROVIDERS: ATTEND Advanced Practice Midwife
DX: Z36.89 Encounter for other specified antenatal screening (principal); Z3A.00 Weeks of gestation of pregnancy not specified

== ENCOUNTER → 2021-11-22 | Outpatient (CLI) | payer OTHER ==
[2021-11-22 15:21] LABS: HEMATOCRIT 31.6 % (36.0-47.0); HEMOGLOBIN 10.3 g/dl (12.0-15.5); MEAN CORPUSCULAR HEMOGLOBIN 30.9 pg (27.0-33.0); MEAN CORPUSCULAR HGB CONC 32.6 g/dl (32.0-36.5); MEAN CORPUSCULAR VOLUME 94.9 fl (80.0-96.0); PLATELET COUNT, AUTOMATED 332 10^3/uL (150-450); RED BLOOD COUNT 3.33 10^6/uL (4.00-5.40); WHITE BLOOD COUNT 13.5 10^3/uL (4.0-10.0)
[2021-11-22 18:10] LABS: GC DNA AMPLIFICATION NEGATIVE (NEGATIVE)
== END ==
LOC: M PLALAB 11:45
PROVIDERS: ATTEND Advanced Practice Midwife
DX: Z34.92 Encounter for supervision of normal pregnancy, unspecified, second trimester (principal); Z36.89 Encounter for other specified antenatal screening

== ENCOUNTER → 2022-01-19 | Outpatient (REF) | payer OTHER | LOC: M PLALAB 13:00 | PROVIDERS: ATTEND Advanced Practice Midwife | DX: O99.213 Obesity complicating pregnancy, third trimester (principal); Z3A.00 Weeks of gestation of pregnancy not specified ==

== ENCOUNTER → 2022-07-31 | Outpatient (CLI) | payer OTHER ==
[~2022-07-31] MED LIST changes: +ESTA0.25 PO
== END ==
LOC: M LABSMTC 09:06
PROVIDERS: ATTEND Anesthesiology
DX: Z01.812 Encounter for preprocedural laboratory examination (principal); Z20.822 Contact with and (suspected) exposure to COVID-19

== ENCOUNTER 2022-09-18 10:29 | Day surgery (SDC) | payer OTHER ==
[~2022-09-18] VITALS: Ht 170.2 cm; Wt 90.3 kg
[2022-09-18] MEDS ORDERED: LR 1,000 ML IV SCH ×2 (10:55→15:10)
[2022-09-18 11:05] LABS: HEMOGLOBIN 11.6 g/dl (12.0-15.5); MEAN CORPUSCULAR HEMOGLOBIN 28.6 pg (27.0-33.0); MEAN CORPUSCULAR HGB CONC 32.2 g/dl (32.0-36.5); MEAN CORPUSCULAR VOLUME 88.7 fl (80.0-96.0); PLATELET COUNT, AUTOMATED 295 10^3/uL (150-450); RED BLOOD COUNT 4.06 10^6/uL (4.00-5.40); WHITE BLOOD COUNT 8.3 10^3/uL (4.0-10.0)
[2022-09-18] MEDS ORDERED: SCOPOLAMINE 1MG TRANSDERMAL PATCH TOP ONE (12:10)
[2022-09-18] MEDS ORDERED: MIDAZOLAM INJ 2MG/2ML VIAL As Ordered ONE (12:18)
[2022-09-18] MEDS ORDERED: ACETAMINOPHEN 1000MG 100ML IV BAG As Ordered ONE (12:19)
[2022-09-18] MEDS ORDERED: fentaNYL 100 MCG/2 ML INJECTION As Ordered ONE ×2 (12:19→13:21)
[2022-09-18] MEDS ORDERED: propofoL 200 MG/20 ML VIAL As Ordered ONE (12:20)
[2022-09-18] MEDS ORDERED: ONDANSETRON 4MG 2ML VIAL As Ordered ONE (12:20)
[2022-09-18] MEDS ORDERED: SUGAMMADEX SODIUM 500 MG/5 ML VIAL (BRIDION) As Ordered ONE (12:20)
[2022-09-18] MEDS ORDERED: ROCURONIUM BROMIDE 50MG/5ML VIAL As Ordered ONE ×2 (12:20→13:23)
[2022-09-18] MEDS ORDERED: LIDOCAINE 2% 100MG/5ML SDV (FOR ANES.) As Ordered ONE (12:20)
[2022-09-18] MEDS ORDERED: KETOROLAC 60MG 2ML VIAL As Ordered ONE (12:20)
[2022-09-18] MEDS ORDERED: BUPIVACAINE HCL 0.25% 30ML VIAL As Ordered ONE (12:44)
[2022-09-18] MEDS ORDERED: HYDROmorphone HCL 2MG/ML 1ML VIAL As Ordered ONE (13:43)
[2022-09-18] MEDS ORDERED: ONDANSETRON 4MG 2ML VIAL IV PRN (13:55)
[2022-09-18] MEDS ORDERED: fentaNYL 100 MCG/2 ML INJECTION IV PRN (13:55)
[2022-09-18] MEDS ORDERED: oxyCODONE 5MG TAB PO PRN (13:55)
[2022-09-18] MEDS ORDERED: MORPHINE 2 MG/ML 1ML VIAL IV PRN (13:55)
[2022-09-18] MEDS ORDERED: IBUP-1022 PO (14:15)
[2022-09-18] MEDS ORDERED: OXYC1TAB23 PO (14:15)
[2022-09-18] MEDS ORDERED: METOCLOPRAMIDE INJ 10MG/2ML VIAL IV PRN (14:50)
[2022-09-18] MEDS ORDERED: PERCOCET 5MG/325MG TAB PO PRN (15:15)
[2022-09-18 15:50] VITALS: BP 172/97
== END 2022-09-18 16:53 | disposition home or self-care (01) ==
LOC: M SDC 10:29
PROVIDERS: ATTEND Specialist
DX: Z30.2 Encounter for sterilization (principal); K58.8 Other irritable bowel syndrome; K21.9 Gastro-esophageal reflux disease without esophagitis; F41.9 Anxiety disorder, unspecified; F32.A Depression, unspecified; Z88.1 Allergy status to other antibiotic agents; G43.909 Migraine, unspecified, not intractable, without status migrainosus
CPT/HCPCS: 36415; 58661; 81025; 85027; 88302; J0131; J1100; J1170; J1885; J2250; J2405; J2765; J3010; S0020

== ENCOUNTER → 2023-06-18 | Outpatient (REF) | payer OTHER ==
[~2023-06-18] MED LIST changes: +DICY-61 PO; -DICY10CA13 PO; +OXYC1TAB23 PO
[2023-06-18 16:44] LABS: APPEARANCE, URINE CLOUDY (CLEAR); BACTERIA, URINE AUTO 1+ (NEGATIVE); BILIRUBIN, URINE AUTO NEGATIVE (NEGATIVE); BLOOD, URINE BLOOD 2+ (NEGATIVE); COLOR, URINE AMBER (YELLOW); GLUCOSE, URINE (UA) AUTO NEGATIVE (NEGATIVE); KETONE, URINE AUTO 1+ mg/dL (NEGATIVE); LEUKOCYTE ESTERASE, URINE AUTO TRACE (NEGATIVE); MUCUS, URINE LARGE (NEGATIVE); NITRITE, URINE AUTO NEGATIVE (NEGATIVE); PROTEIN, URINE AUTO 2+ mg/dL (NEGATIVE); RBC, URINE AUTO 3 /HPF (0-3); SPECIFIC GRAVITY URINE AUTO 1.026 (1.002-1.035); SQUAMOUS EPITHELIAL CELL UR AU 42 /HPF (0-6); UROBILINOGEN, URINE AUTO 0.2 mg/dL (0.0-2.0); WBC, URINE AUTO 5 /HPF (0-3)
== END ==
LOC: M LAB REF 16:13
PROVIDERS: ATTEND Physician Assistant
DX: N39.0 Urinary tract infection, site not specified (principal); J02.9 Acute pharyngitis, unspecified

== ENCOUNTER 2023-07-02 04:22 | Emergency (ER) | payer OTHER ==
[~2023-07-02] VITALS: Ht 170.2 cm; Wt 93.5 kg
[2023-07-02] MEDS ORDERED: TRAM50TA2 PO (06:48)
[2023-07-02] MEDS ORDERED: IBUP-1022 PO (06:48)
[2023-07-02] MEDS ORDERED: CLEO300C2 PO (06:48)
[2023-07-02] MEDS: KETOROLAC 60MG 2ML VIAL IM ONE (07:00)
[2023-07-02] MEDS: CLINDAMYCIN 150MG CAPSULE PO ONE (07:02)
[2023-07-02 07:33] VITALS: BP 165/89; TEMP 97; O2SAT 98
== END 2023-07-02 07:36 | disposition home or self-care (01) ==
LOC: M ED 04:22
DX: K04.7 Periapical abscess without sinus (principal); K21.9 Gastro-esophageal reflux disease without esophagitis; E73.9 Lactose intolerance, unspecified; Z88.1 Allergy status to other antibiotic agents
CPT/HCPCS: 96372; 99283; J1885

== ENCOUNTER → 2024-01-12 | Outpatient (REF) | payer OTHER ==
[~2024-01-12] MED LIST changes: +CLEO300C2 PO; +FLUO-365; +FLUO-365 PO; -FLUO20CA22; -FLUO20CA22 PO; +ONDA-282 PO; -ONDA4TAB6 PO; +TRAM50TA2 PO
[2024-01-12 18:25] LABS: APPEARANCE, URINE CLOUDY (CLEAR); BACTERIA, URINE AUTO 2+ (NEGATIVE); BILIRUBIN, URINE AUTO NEGATIVE (NEGATIVE); BLOOD, URINE BLOOD NEGATIVE (NEGATIVE); COLOR, URINE YELLOW (YELLOW); GLUCOSE, URINE (UA) AUTO NEGATIVE (NEGATIVE); KETONE, URINE AUTO NEGATIVE (NEGATIVE); LEUKOCYTE ESTERASE, URINE AUTO 3+ (NEGATIVE); MUCUS, URINE SMALL (NEGATIVE); NITRITE, URINE AUTO NEGATIVE (NEGATIVE); PROTEIN, URINE AUTO NEGATIVE (NEGATIVE); RBC, URINE AUTO 2 /HPF (0-3); SPECIFIC GRAVITY URINE AUTO 1.012 (1.002-1.035); SQUAMOUS EPITHELIAL CELL UR AU 23 /HPF (0-6); UROBILINOGEN, URINE AUTO 0.2 mg/dL (0.0-2.0); WBC, URINE AUTO 6 /HPF (0-3)
== END ==
LOC: M LAB REF 18:11
PROVIDERS: ATTEND Physician Assistant Medical
DX: N39.0 Urinary tract infection, site not specified (principal)

== ENCOUNTER 2024-05-27 09:42 | Emergency (ER) | payer OTHER ==
[~2024-05-27] VITALS: Ht 170.2 cm; Wt 78.0 kg
[2024-05-27] MEDS ORDERED: AMOX875T2 PO (13:46)
[2024-05-27 13:52] VITALS: BP 134/83; TEMP 99.1; O2SAT 100
== END 2024-05-27 13:56 | disposition home or self-care (01) ==
LOC: M ED 09:42
DX: J06.9 Acute upper respiratory infection, unspecified (principal); J01.00 Acute maxillary sinusitis, unspecified; Z11.52 Encounter for screening for COVID-19; K21.9 Gastro-esophageal reflux disease without esophagitis; K58.9 Irritable bowel syndrome, unspecified; Z88.1 Allergy status to other antibiotic agents

== ENCOUNTER 2024-11-30 12:36 | Outpatient (RCR) | payer OTHER ==
[~2024-11-30 12:36] MED LIST changes: +AMOX875T2 PO
== END 2024-12-03 ==
LOC: M PT 12:36
PROVIDERS: ATTEND Nurse Practitioner Family
DX: N94.10 Unspecified dyspareunia (principal)

== ENCOUNTER → 2024-12-21 | Outpatient (REF) | payer OTHER ==
[2024-12-21 21:39] LABS: APPEARANCE, URINE CLEAR (CLEAR); BACTERIA, URINE AUTO 2+ (NEGATIVE); BILIRUBIN, URINE AUTO NEGATIVE (NEGATIVE); BLOOD, URINE BLOOD NEGATIVE (NEGATIVE); GLUCOSE, URINE (UA) AUTO NEGATIVE (NEGATIVE); KETONE, URINE AUTO NEGATIVE (NEGATIVE); LEUKOCYTE ESTERASE, URINE AUTO NEGATIVE (NEGATIVE); MUCUS, URINE SMALL (NEGATIVE); NITRITE, URINE AUTO NEGATIVE (NEGATIVE); PROTEIN, URINE AUTO NEGATIVE (NEGATIVE); RBC, URINE AUTO 0 /HPF (0-3); SPECIFIC GRAVITY URINE AUTO 1.015 (1.002-1.035); SQUAMOUS EPITHELIAL CELL UR AU 3 /HPF (0-6); UROBILINOGEN, URINE AUTO 0.2 mg/dL (0.0-2.0); WBC, URINE AUTO 2 /HPF (0-3)
== END ==
LOC: M LAB REF 21:14
PROVIDERS: ATTEND Physician Assistant Medical
DX: N39.0 Urinary tract infection, site not specified (principal)

== ENCOUNTER 2025-04-24 11:32 | Emergency (ER) | payer OTHER ==
[~2025-04-24] VITALS: Ht 170.2 cm; Wt 76.5 kg
[~2025-04-24 11:32] MED LIST changes: -IBUP-1022 PO; +IBUP600T42 PO
[2025-04-24 12:24] LABS: BASO # 0.0 10^3/uL (0.0-0.2); BASO % 0.6 % (0.0-1.0); EOS # 0.2 10^3/uL (0.0-0.5); EOS % 2.1 % (0.0-3.0); LYMPH # 2.4 10^3/uL (1.5-5.0); LYMPH % 34.0 % (24.0-44.0); MONO # 0.5 10^3/uL (0.0-0.8); MONO % 7.3 % (2.0-8.0); NEUTROPHILS # 3.9 10^3/uL (1.5-8.5); NEUTROPHILS % 55.7 % (36.0-66.0); PLATELET COUNT, AUTOMATED 253 10^3/uL (150-450)
[2025-04-24 12:43] LABS: CK-MB VALUE MASS < 1.0 NG/ML (<3.6)
[2025-04-24 12:44] LABS: HCG, SERUM QUANTITATIVE < 2.6 MIU/ML (<4.2)
[2025-04-24 12:47] LABS: CALCIUM LEVEL 9.3 MG/DL (8.5-10.1); CARBON DIOXIDE LEVEL 24 MMOL/L (20-31); CHLORIDE LEVEL 106 MMOL/L (98-107); CREATININE FOR GFR 0.79 MG/DL (0.55-1.30); GLOMERULAR FILTRATION RATE > 90.0 (>60); POTASSIUM SERUM 4.1 MMOL/L (3.5-5.1); SODIUM LEVEL 140 MMOL/L (136-145)
[2025-04-24 12:49] LABS: CPK CREATINE PHOSPHOKINASE 75 U/L (34-145)
[2025-04-24] MEDS ORDERED: GI COCKTAIL 50 ML BTL(HYOSCYAMINE/MAALOX/LIDOCAINE VISCOUS)(1:3:1) PO ONE (13:10)
[2025-04-24] MEDS ORDERED: ISOVUE-370 76% 100 ML VIAL As Ordered ONE (13:18)
[2025-04-24 13:32] LABS: ETHYL ALCOHOL (ETHANOL) < 0.003 % (0.000-0.010)
[2025-04-24 13:34] LABS: ALT/SGPT 14 U/L (7.0-40); AST/SGOT 20 U/L (<34); SALICYLATE LEVEL < 3.0 MG/DL (<30)
[2025-04-24] MEDS: PANTOPRAZOLE 40MG VIAL IV ONE (13:36)
[2025-04-24] MEDS: ASPIRIN 81 MG CHEWABLE TABLET PO ONE (13:36)
[2025-04-24] MEDS: MAALOX 30 ML SUSP *UDC PO ONE (13:36)
[2025-04-24] MEDS: LIDOCAINE VISCOUS 2% SOLN 15 ML UDC PO ONE (13:36)
[2025-04-24] MEDS: HYOSCYAMINE SULFATE 0.125 MG SUBL TABLET SL ONE (13:37)
[2025-04-24 14:24] LABS: CK-MB VALUE MASS < 1.0 NG/ML (<3.6)
[2025-04-24 14:26] LABS: CPK CREATINE PHOSPHOKINASE 60 U/L (34-145)
[2025-04-24 15:12] LABS: AMPHETAMINES LEVEL URINE NEGATIVE (NEGATIVE)
[2025-04-24 15:13] LABS: BARBITURATES URINE NEGATIVE (NEGATIVE); BENZODIAZEPINES URINE NEGATIVE (NEGATIVE); COCAINE METABOLITE URINE NEGATIVE (NEGATIVE); METHADONE URINE NEGATIVE (NEGATIVE); OPIATES URINE NEGATIVE (NEGATIVE); PHENCYCLIDINE URINE NEGATIVE (NEGATIVE)
[2025-04-24 15:20] LABS: CANNABINOIDS URINE POSITIVE (NEGATIVE)
[2025-04-24 17:08] VITALS: BP 112/80; TEMP 98.6; O2SAT 99
== END 2025-04-24 17:10 | disposition home or self-care (01) ==
LOC: M ED 11:32
DX: F32.A Depression, unspecified (principal); K58.9 Irritable bowel syndrome, unspecified; F12.10 Cannabis abuse, uncomplicated; Z79.899 Other long term (current) drug therapy; Z88.1 Allergy status to other antibiotic agents
CPT/HCPCS: 71275; 74177; 80048; 80076; 80143; 80307; 82077; 82550; 82553; 83690; 84443; 84484; 84702; 85025; 85379; 93005; 93041; 94760; 96374; 99285; J2470; Q9967